=== PATIENT | male | born 1995 | race African-American/Black ===

== ENCOUNTER 2018-07-11 17:50 | Emergency (ER) | payer OTHER ==
[2018-07-11 18:33] VITALS: BP 126/63
[2018-07-11] MEDS ORDERED: METHOCARBAMOL 500 MG TABLET PO ONE (19:39)
[2018-07-11] MEDS ORDERED: IBUPROFEN 800 MG TABLET PO ONE (19:39)
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
== END 2018-07-11 21:04 | disposition home or self-care (01) ==
LOC: ER 17:50
DX: S20.212A Contusion of left front wall of thorax, initial encounter (principal); S80.00XA Contusion of unspecified knee, initial encounter; R07.9 Chest pain, unspecified; M54.5 Low back pain; M25.561 Pain in right knee; M25.562 Pain in left knee; V89.2XXA Person injured in unspecified motor-vehicle accident, traffic, initial encounter; Z87.891 Personal history of nicotine dependence
CPT/HCPCS: 71046; 99283

== ENCOUNTER 2018-10-19 11:00 | Emergency (ER) | payer SELFPAY ==
[2018-10-19] MEDS ORDERED: NORMAL SALINE 1000 ML 1,000 ML IV ONE (11:29)
[2018-10-19] MEDS ORDERED: METOCLOPRAMIDE HCL ORAL SOLN 10 MG/10 ML UDCUP PO ONE (11:29)
[2018-10-19] MEDS ORDERED: LIDOCAINE 2% VISCOUS SOLN 20 ML UDCUP PO ONE (11:29)
[2018-10-19] MEDS ORDERED: MAG HYDROX/AL HYDROX/SIMETH SUSP 30 ML UDCUP PO ONE (11:29)
[2018-10-19 12:13] LABS: ABSOLUTE EOSINOPHILS # (AUTO) 0.1 10^3/uL (0.0-0.6); ABSOLUTE LYMPHOCYTES (AUTO) 1.1 10^3/uL (0.5-4.7); ABSOLUTE MONOCYTES (AUTO) 1.2 10^3/uL (0.1-1.4); ABSOLUTE NEUT (AUTO) 9.7 10^3/uL (1.7-8.2); BASOPHILS % (AUTO) 0.3 % (0-2); EOSINOPHILS % (AUTO) 0.4 % (0-6); HEMATOCRIT 46.6 % (37.9-51.0); HEMOGLOBIN 16.7 g/dL (13.5-17.0); LYMPHOCYTES % (AUTO) 8.9 % (13-45); MEAN CORPUSCULAR HGB CONC 35.8 g/dL (32.0-36.0); MEAN CORPUSCULAR VOLUME 84 fl (80-97); MONOCYTES % (AUTO) 9.7 % (3-13); PLATELET COUNT 192 10^3/uL (150-450); RED BLOOD COUNT 5.56 10^6/uL (4.35-5.55); RED CELL DISTRIBUTION WIDTH 12.6 % (11.5-14.0); SEGMENTED NEUTROPHILS % (AUTO) 80.7 % (42-78); TOTAL CELLS COUNTED % (AUTO) 100 %
[2018-10-19 12:28] LABS: ALANINE AMINOTRANSFERASE 17 U/L (21-72); ALBUMIN 4.5 g/dL (3.5-5.0); ALKALINE PHOSPHATASE 44 U/L (38-126); ANION GAP 16 (5-19); ASPARTATE AMINO TRANSFERASE 29 U/L (17-59); BILIRUBIN,DIRECT 0.2 mg/dL (0.0-0.4); BILIRUBIN,TOTAL 1.5 mg/dL (0.2-1.3); BLOOD UREA NITROGEN 14 mg/dL (7-20); CALCIUM 9.9 mg/dL (8.4-10.2); CARBON DIOXIDE 25 mmol/L (22-30); CHLORIDE 101 mmol/L (98-107); GLUCOSE 103 mg/dL (75-110); POTASSIUM 4.5 mmol/L (3.6-5.0); SODIUM 141.5 mmol/L (137-145); TOTAL PROTEIN 7.3 g/dL (6.3-8.2)
--- NOTE | 2018-10-19 13:17 | ER Document Report ---
ED General - General Chief Complaint: Abdominal Pain Stated Complaint: ABDOMINAL AND BACK PAIN Time Seen by Provider: 10/19/18 11:22 TRAVEL OUTSIDE OF THE [place] IN LAST 30 DAYS: No - HPI Patient complains to provider of: Epigastric abdominal pain Notes: Patient coming in for evaluation of epigastric abdominal pain that radiates to his back. Patient concern for possible gallbladder disease or pancreatitis. Patient states he is having pain whenever he ingests food almost instantaneously. Patient denies excessive nausea or vomiting denies any excessive alcohol use denies NSAIDs use. Patient denies any diarrhea fevers chills otherwise is resting comfortably denies any trauma. - Related Data Allergies/Adverse Reactions: Penicillins Allergy (Verified 10/19/18 11:04) Past Medical History - Social History Smoking Status: Unknown if Ever Smoked Family History: Reviewed & Not Pertinent Patient has suicidal ideation: No Patient has homicidal ideation: No - Past Medical History Cardiac Medical History: Denies: Hx Hypertension Pulmonary Medical History: Reports: Hx Asthma - Juvenile Renal/ Medical History: Denies: Hx Peritoneal Dialysis Musculoskeletal Medical History: Reports Hx Musculoskeletal Trauma Traumatic Medical History: Reports: Hx Fractures - right foot - Immunizations Immunizations up to date: Yes Hx Diphtheria, Pertussis, Tetanus Vaccination: Yes Review of Systems - Review of Systems Constitutional: No symptoms reported EENT: No symptoms reported Cardiovascular: No symptoms reported Respiratory: No symptoms reported Gastrointestinal: Abdominal pain Genitourinary: No symptoms reported Male Genitourinary: No symptoms reported Musculoskeletal: No symptoms reported Skin: No symptoms reported Hematologic/Lymphatic: No symptoms reported Neurological/Psychological: No symptoms reported -: Yes All other systems reviewed and negative Physical Exam - Vital signs Vitals: Temp Pulse Resp BP Pulse Ox 100.0 F 111 H 14 137/77 H 98 10/19/18 11:04 10/19/18 11:04 10/19/18 11:04 10/19/18 11:04 10/19/18 11:04 Interpretation: Normal - General General appearance: Appears well, Alert - HEENT Head: Normocephalic, Atraumatic Eyes: Normal Pupils: PERRL - Respiratory Respiratory status: No respiratory distress Chest status: Nontender Breath sounds: Normal Chest palpation: Normal - Cardiovascular Rhythm: Regular Heart sounds: Normal auscultation Murmur: No - Abdominal Inspection: Normal Distension: No distension Bowel sounds: Normal Tenderness: Tender - Epigastric abdominal pain tender to palpation mild to moderate in the right upper quadrant tenderness. No: McBurney's point, Sheets' s sign, Guarding, Rebound Organomegaly: No organomegaly - Back Back: Normal, Nontender - Extremities General upper extremity: Normal inspection, Nontender, Normal color, Normal ROM , Normal temperature General lower extremity: Normal inspection, Nontender, Normal color, Normal ROM , Normal temperature, Normal weight bearing. No: Ronel's sign - Neurological Neuro grossly intact: Yes Cognition: Normal Orientation: AAOx4 Edy Coma Scale Eye Opening: Spontaneous [place] Coma Scale Verbal: Oriented [place] Coma Scale Motor: Obeys Commands [place] Coma Scale Total: 15 Speech: Normal Motor strength normal: LUE, RUE, LLE, RLE Sensory: Normal - Psychological Associated symptoms: Normal affect, Normal mood - Skin Skin Temperature: Warm Skin Moisture: Dry Skin Color: Normal Course - Re-evaluation Re-evalutation: 10/19/18 20:31 Patient symptoms were improved with a GI cocktail laboratory findings not suggestive of any hepatitis gallbladder disease or pancreatitis. More likely underlying gastritis patient will be given Carafate and PPI diet education was given to the patient patient stated understanding was grateful for his care patient had no questions about his discharge instructions and agrees with discharge plan. The patient presents with abdominal pain without signs of peritonitis or other life-threatening or serious etiology. The patient appears stable for discharge and has been instructed to return immediately if the symptoms worsen in any way, or in 8-12hr if not improved for re-evaluation. The patient has been instructed to return if the symptoms worsen or change in any way. - Vital Signs Vital signs: Temp Pulse Resp BP Pulse Ox 100.0 F 86 14 129/71 H 100 10/19/18 11:04 10/19/18 13:20 10/19/18 11:04 10/19/18 13:20 10/19/18 13:20 - Laboratory Result Diagrams: 10/19/18 12:01 10/19/18 12:01 Laboratory results interpreted by me: 10/19/18 10/19/18 12:01 12:01 WBC 12.0 H RBC 5.56 H Seg Neutrophils % 80.7 H Lymphocytes % 8.9 L Absolute Neutrophils 9.7 H Total Bilirubin 1.5 H ALT 17 L Discharge - Discharge Clinical Impression: Abdominal pain Qualifiers: Abdominal location: unspecified location Qualified Code(s): R10.9 - Unspecified abdominal pain Condition: Good Disposition: HOME, SELF-CARE Instructions: Abdominal Pain ([facility]), Gastritis ([facility]) Additional Instructions: Laboratory studies a not show any acute pathology. I recommend taking the Carafate and omeprazole as prescribed for your abdominal pain. I recommend taking Tylenol for your pain control as well please follow a bland diet for the next 24-48 hours Prescriptions: Omeprazole 20 mg PO DAILY #30 capsule. Sucralfate [Carafate 1 gm Tablet] 1 gm PO ACHS #120 tablet
[2018-10-19 13:22] VITALS: BP 129/71
== END 2018-10-19 13:30 | disposition home or self-care (01) ==
LOC: ER 11:00
DX: R10.13 Epigastric pain (principal); Z88.0 Allergy status to penicillin
CPT/HCPCS: 99284; 96360; 96361; 36415; 83690; 85025; 80053; J3490; J7030

== ENCOUNTER 2019-04-19 13:10 | Emergency (ER) | payer SELFPAY ==
[2019-04-19 14:02] VITALS: BP 133/68
[2019-04-19] MEDS ORDERED: LIDOCAINE 5% (700 MG) TRANSDERMAL ADH..PATCH TP ONE (14:13)
[2019-04-19] MEDS ORDERED: IBUPROFEN 800 MG TABLET PO ONE (14:13)
--- NOTE | 2019-04-19 15:04 | RADIOLOGY REPORT (SQ) ---
EXAM DESCRIPTION: FEMUR RIGHT COMPLETED DATE/TIME: 04/19/2019 2:56 pm REASON FOR STUDY: pain COMPARISON: None. NUMBER OF VIEWS: Two views. TECHNIQUE: Two radiographic images acquired of the right femur to include hip and knee in at least o ne projection. LIMITATIONS: None. FINDINGS: MINERALIZATION: Normal. BONES: No acute fracture. No worrisome bone lesions. SOFT TISSUES: No obvious swelling or foreign body. OTHER: No other significant finding. IMPRESSION: 1. NEGATIVE STUDY OF THE RIGHT FEMUR. TECHNICAL DOCUMENTATION: JOB ID: [id number] [employer]- All Rights Reserved Reading location - IP/workstation name: [email or web address]
--- NOTE | 2019-04-19 15:15 | ER Document Report ---
HPI - HPI Patient complains to provider of: Right hamstring pain Time Seen by Provider: 04/19/19 14:07 Pain Level: 3 Context: Patient is a 24-year-old male presents to the emergency department with right hamstring pain. Patient states 2 days ago he "jumped off of something." States he feels as though he may have landed wrong but then also fell onto his left femur posterior side. Patient states he has had generalized pain since. States he has pain in the right hamstring but also upon deep palpation of the right femur. Patient's denying any numbness or tingling in any extremity. In his pain in his right hip, right knee, right ankle. When patient experienced injury he denies hitting his head, neck, back, denies any loss of consciousness or vomiting. - MUSCULOSKELETAL Musculoskeletal: REPORTS: Extremity pain - R post thigh Past Medical History - General Information source: Patient - Social History Smoking Status: Former Smoker Chew tobacco use (# tins/day): - vape Frequency of alcohol use: Occasional Drug Abuse: None Family History: Reviewed & Not Pertinent Patient has suicidal ideation: No Patient has homicidal ideation: No - Past Medical History Cardiac Medical History: Denies: Hx Hypertension Pulmonary Medical History: Reports: Hx Asthma - Juvenile Renal/ Medical History: Denies: Hx Peritoneal Dialysis Musculoskeletal Medical History: Reports Hx Musculoskeletal Trauma Traumatic Medical History: Reports: Hx Fractures - right foot - Immunizations Immunizations up to date: Yes Hx Diphtheria, Pertussis, Tetanus Vaccination: Yes Vertical Provider Document - CONSTITUTIONAL Agree With Documented VS: Yes Notes: GENERAL: Alert, interacts well. No acute distress. HEAD: Normocephalic, atraumatic. EYES: Pupils equal, round, and reactive to light. Extraocular movements intact. ENT: Oral mucosa moist, tongue midline. NECK: Full range of motion. Supple. Trachea midline. LUNGS: Clear to auscultation bilaterally, no wheezes, rales, or rhonchi. No respiratory distress. HEART: Regular rate and rhythm. No murmur ABDOMEN: Soft, non-tender. Non-distended. Bowel sounds present in all 4 quadrants. EXTREMITIES: Moves all 4 extremities spontaneously. No edema, normal radial and dorsalis pedis pulses bilaterally. No cyanosis. Generalized pain upon palpation right hamstring area and also deep palpation to right femur. No outward signs of trauma, swelling, erythema, ecchymosis noted. No pain upon palpation right hip, right knee, right ankle. 5 out of 5 strength all 4 extremities. BACK: no cervical, thoracic, lumbar midline tenderness. No saddle anesthesia, normal distal neurovascular exam. NEUROLOGICAL: Alert and oriented x3. Normal speech. cranial nerves II through XII grossly intact PSYCH: Normal affect, normal mood. SKIN: Warm, dry, normal turgor. No rashes or lesions noted. - INFECTION CONTROL TRAVEL OUTSIDE OF THE [place] IN LAST 30 DAYS: No Course - Re-evaluation Re-evalutation: Femur X-Ray 04/19/19 14:12 IMPRESSION: 1. NEGATIVE STUDY OF THE RIGHT FEMUR. Discussed with patient at length this may be a hamstring injury, a muscle pull. I discussed x-ray results with patient at bedside. Patient continues without any right knee pain. Unable to give patient any sort of immobilization devices. States he walks fine he just has some generalized pain upon palpation. Discussed [id number] use of Tylenol Motrin and follow-up with orthopedics. Return precautions discussed. Patient stable for discharge. This medical record was dictated with voice recognizing software. There may be grammatical, syntax errors that are unintended. - Vital Signs Vital signs: Temp Pulse Resp BP Pulse Ox 97.6 F 83 18 133/68 H 100 04/19/19 14:01 04/19/19 14:01 04/19/19 14:01 04/19/19 14:01 04/19/19 14:01 Discharge - Discharge Clinical Impression: Right leg pain Condition: Stable Disposition: HOME, SELF-CARE Instructions: Muscle Strain ([facility]) Additional Instructions: He has been seen and treated in the emergency department for potential injury to your right lower extremity. X-rays of your right femur reveal no sign based on the fact that there are no signs of fractures on your x-ray I do feel that this is a muscular injury. Please make sure as we discussed you continue to take [id number] Tylenol, Motrin, and use [id number] IcyHot or Lidoderm patches. Please make sure he follow-up with your primary care provider in the next 24 to 48 hours. Please return to the emergency room for any concerns Forms: Return to Work Referrals: MANI COLUNGA, [ACTIVE STAFF] - Follow up as needed
== END 2019-04-19 15:55 | disposition home or self-care (01) ==
LOC: ER 13:10
DX: M79.604 Pain in right leg (principal); M25.551 Pain in right hip; M25.561 Pain in right knee; M25.571 Pain in right ankle and joints of right foot; W19.XXXA Unspecified fall, initial encounter; Z87.891 Personal history of nicotine dependence; J45.909 Unspecified asthma, uncomplicated
CPT/HCPCS: 99283

== ENCOUNTER 2020-05-15 12:35 | Emergency (ER) | payer SELFPAY ==
[2020-05-15 12:42] VITALS: BP 159/88
[2020-05-15] MEDS ORDERED: DIPH/PERTUSS(ACELL)/TETANUS VAC/PF 0.5 ML SYR (>=10YO) IM ONE (13:22)
[2020-05-15] MEDS ORDERED: DOXYCYCLINE HYCLATE 100 MG TABLET PO ONE (13:25)
--- NOTE | 2020-05-15 13:30 | ER Document Report ---
ED Extremity Problem, Lower - General Chief Complaint: Foot Injury Stated Complaint: FOOT LACERATION Time Seen by Provider: 05/15/20 13:17 Mode of Arrival: Ambulatory Information source: Patient Notes: 25-year-old male presented to ED for lacerations to the bottom of the left foot caused by oyster shells. He states he did this 3 days ago. He states it is painful at this time. He states he did use some peroxide on it. He is alert oriented respirations regular nonlabored speaking in full sentences. He states he does use vapor cigarettes drinks about once a week works at [employer] and lives alone. He denies any past medical history. TRAVEL OUTSIDE OF THE [place] IN LAST 30 DAYS: No - Related Data Allergies/Adverse Reactions: Penicillins Allergy (Verified 05/15/20 13:25) Past Medical History - General Information source: Patient - Social History Smoking Status: Current Every Day Smoker - Vapor cigarette Cigarette use (# per day): Yes Chew tobacco use (# tins/day): No Frequency of alcohol use: Occasional Drug Abuse: None Lives with: Alone Family History: Reviewed & Not Pertinent Patient has homicidal ideation: No - Past Medical History Cardiac Medical History: Reports: None Pulmonary Medical History: Reports: Hx Asthma - Juvenile EENT Medical History: Reports: None Neurological Medical History: Reports: None Endocrine Medical History: Reports: None Renal/ Medical History: Reports: None Malignancy Medical History: Reports None GI Medical History: Reports: None Musculoskeletal Medical History: Reports Hx Musculoskeletal Trauma Skin Medical History: Reports None Psychiatric Medical History: Reports: None Traumatic Medical History: Reports: Hx Fractures - right foot Infectious Medical History: Reports: None Surgical Hx: Negative - Immunizations Immunizations up to date: Yes Hx Diphtheria, Pertussis, Tetanus Vaccination: Yes Review of Systems - Review of Systems Constitutional: No symptoms reported EENT: No symptoms reported Cardiovascular: No symptoms reported Respiratory: No symptoms reported Gastrointestinal: No symptoms reported Genitourinary: No symptoms reported Male Genitourinary: No symptoms reported Musculoskeletal: No symptoms reported Skin: Other - Several superficial lacerations to the bottom of the left foot Hematologic/Lymphatic: No symptoms reported Neurological/Psychological: No symptoms reported -: Yes All other systems reviewed and negative Physical Exam - Vital signs Vitals: Temp Pulse Resp BP Pulse Ox 99 F 69 16 159/88 H 100 05/15/20 12:39 05/15/20 12:39 05/15/20 12:39 05/15/20 12:39 05/15/20 12:39 Interpretation: Normal - General General appearance: Appears well, Alert - HEENT Head: Normocephalic, Atraumatic Eyes: Normal Pupils: PERRL - Respiratory Respiratory status: No respiratory distress Chest status: Nontender Breath sounds: Normal Chest palpation: Normal - Cardiovascular Rhythm: Regular Heart sounds: Normal auscultation Murmur: No - Abdominal Inspection: Normal Distension: No distension Bowel sounds: Normal Tenderness: Nontender Organomegaly: No organomegaly - Back Back: Normal, Nontender - Extremities General upper extremity: Normal inspection, Nontender, Normal color, Normal ROM, Normal temperature General lower extremity: Normal color, Normal ROM, Normal temperature, Normal weight bearing. No: Ronel's sign Foot: Tender, Laceration - Facial lacerations caused by oyster shells to the left foot, No evidence of FB - Neurological Neuro grossly intact: Yes Cognition: Normal Orientation: AAOx4 [place] Coma Scale Eye Opening: Spontaneous [place] Coma Scale Verbal: Oriented [place] Coma Scale Motor: Obeys Commands [place] Coma Scale Total: 15 Speech: Normal Motor strength normal: LUE, RUE, LLE, RLE Sensory: Normal - Psychological Associated symptoms: Normal affect, Normal mood - Skin Skin Temperature: Warm Skin Moisture: Dry Skin Color: Normal Skin irregularity: Laceration Location of irregularity: Extremities - Superficial lacerations to the bottom of the left foot Course - Re-evaluation Re-evalutation: 05/15/20 13:33 Patient has been treated with tetanus shot doxycycline and Tylenol for the superficial laceration to the left plantar surface of the foot. He stepped on oyster shells 3 or 4 days ago. The area is not infected but there does have some inflammation to the site. Patient has been instructed to take the doxycycline and soak his foot in Epson salts 3 times a day and to follow-up with the manager [facility] and/or a primary care. I did give him options to different doctors in the area. - Vital Signs Vital signs: Temp Pulse Resp BP Pulse Ox 99.0 F 69 16 159/88 H 100 05/15/20 13:18 05/15/20 12:39 05/15/20 12:39 05/15/20 12:39 07/06/20 12:39 Discharge - Discharge Clinical Impression: Lacerations plantar surface by shells le Condition: Stable Disposition: HOME, SELF-CARE Additional Instructions: NON-SUTURED LACERATION: Your laceration did not require suturing. Some lacerations cannot be sutured because of increased infection risk, while others simply don't need stitches because they are shallow or very short. Your injury should be protected while it heals. Usually complete healing takes 10 to 14 days. Keep the dressing clean and dry, and change it every day. If you notice increasing pain, redness, swelling, drainage, or tender lumps in the armpit or groin above the injury, infection may be present. You should call the doctor at once. Epsom Salt Soaks Soak the wound area in a container of warm epsom salt water. If you can't get the wound area into a bucket or brown, use a folded towel soaked in the epsom salt solution and apply to the area. Use clean hot tap water (about the temperature of a very warm bath), mixing in about one (1) teaspoon for every pint of water. Two gallon --> 16 teaspoons Epsom Salts One gallon --> 8 teaspoons Epsom Salts Two quarts --> 4 teaspoons Epsom Salts One quart --> 2 teaspoons Epsom Salts Soak the wound for about 20 minutes while gently moving it around in the water. Repeat this four (4) times a day. SOAP CLEANSING: Gently wash the wound daily using a mild soap (like Ivory, Phisoderm, Neutrogena). Use warm water, rubbing gently until all debris, ooze, and crusting have been washed from the wound. Allow to dry briefly (about 10 minutes) after cleaning. Repeat this cleansing at least three times a day for the first two days and then once or twice a day. ANTIBIOTIC OINTMENT PROTECTION: Your wounds are such that dressing them is not practical or optional. After cleansing, you should apply a thin coating of antibiotic ointment (Bacitracin, not Neosporin) to the wounds at least three times daily. This lessens infection risk, and may decrease the amount of scarring. Use a q-tip or dull butter knife, not your finger, to apply this ointment. Any debris or ooze which builds up in the ointment should be gently rubbed off with a sterile gauze pad. Harder crusting may need to be gently scrubbed off with a clean wash cloth with soap and warm water, perhaps applying a warm, wet wash cloth to the wound for ten minutes first. Development of redness, severe itching, or blistering may mean allergy to the ointment. See the doctor. TETANUS IMMUNIZATION GIVEN: You have been given an immunization against tetanus. Please record this in your records. In general, a booster is needed only once every 10 years. The tetanus shot protects against tetanus or "lockjaw," which is a complication of certain wound infections (the tetanus shot cannot protect against the actual infection). The immunization site may become warm and red due to local reaction. If this occurs, apply warm compresses and take aspirin or ibuprofen to reduce inflammation and discomfort. Return for evaluation if the reaction becomes severe. Doxycycline Doxycycline (Vibramycin, Doryx) is an antibiotic of the tetracycline family. This type of drug is useful for infections of the respiratory tract and genital tract, and is sometimes used for intestinal infections. Unlike most tetracyclines, doxycycline can be taken with food. It is longer acting, and (usually) less prone to side effects than regular tetracycline. Tetracycline antibiotics can stain immature teeth and SHOULD NOT BE TAKEN BY CHILDREN, NURSING MOTHERS, OR WOMEN. Tetracyclines can make you more prone to sunburn. Abdominal cramping, nausea, and diarrhea are occasional side effects. Women may experience vaginal yeast infections. Call the doctor at once if you develop hives, itching, shortness of breath, or lightheadedness. FOLLOW-UP CARE: Please follow-up with primary care in ___3__ days for an infection check and dressing change. If you have been referred to another physician for follow-up care, call that physicians office for an appointment as you were instructed. If you experience a significant change in your laceration, or if you are concerned there may be an infection (swelling, redness, drainage, increasing tenderness, red streaks, tender lumps in the armpit or groin above the laceration, or fever), return to the Emergency Department immediately re-evaluation. Prescriptions: Doxycycline Monohydrate 100 mg PO BID #20 capsule Forms: Elevated Blood Pressure, Smoking Cessation Education, Return to Work Referrals: [facility] [Provider Group] - Follow up as needed [facility] [Provider Group] - Follow up as needed [facility] [Provider Group] - Follow up as needed TE JONES DPM [ACTIVE STAFF] - Follow up as needed
[2020-05-15] MEDS ORDERED: ACETAMINOPHEN 325 MG TABLET PO ONE (13:31)
== END 2020-05-15 13:34 | disposition home or self-care (01) ==
LOC: ER 12:35
DX: S91.312A Laceration without foreign body, left foot, initial encounter (principal); W26.9XXA Contact with unspecified sharp object(s), initial encounter; F17.290 Nicotine dependence, other tobacco product, uncomplicated; Z23 Encounter for immunization
CPT/HCPCS: 90471; 90715; 99282